=== PATIENT | female | born 1960 | race Caucasian/White ===

== ENCOUNTER 2024-06-06 00:07 | Inpatient (IN) | payer BC, MEDICARE ==
[2024-06-06] VITALS (13 sets, daily range): BP systolic 104–114; BP diastolic 40–62; PULSE 75–104; RESP 14–27; TEMP 97.7–98.3; O2SAT 92–99
[~2024-06-06] VITALS: Ht 157.5 cm; Wt 92.4 kg
[2024-06-06] MEDS: ALBUTEROL SULF 2.5 MG/0.5ML(0.5%) NEB SOLN NEB ONE (00:59)
[2024-06-06 01:17] LABS: Chloride 108 mmol/L (98-107); Potassium 3.4 mmol/L (3.5-5.1); Sodium 138 mmol/L (136-145)
[2024-06-06 01:18] LABS: Anion Gap 12 (5-15); Calcium 9.7 mg/dL (8.7-10.4); Carbon Dioxide 18 mmol/L (20-30)
[2024-06-06] MEDS: DexAMETHasone SOD PHOS 10MG/1ML VIAL INJ IV ONE (01:20)
[2024-06-06] MEDS: AZITHROMYCIN 250 MG TAB PO ONE ×2 (01:20→17:01)
[2024-06-06 01:23] LABS: BUN/Creatinine Ratio 12.5 (10.0-20.0); Basophils # (auto) 0 10 ^3/uL (0-0.2); Basophils % (auto) 0.7 % (0.0-2.0); Blood Urea Nitrogen 11 mg/dL (9-23); Eosinophils # (auto) 0.1 10 ^3/uL (0-0.8); Eosinophils % (auto) 1.7 % (0.0-7.0); Glucose 140 mg/dL (74-106); Hematocrit 39.9 % (36.0-46.0); Hemoglobin 13.8 g/dL (12.2-16.2); Lymphocytes # (auto) 0.6 10 ^3/uL (0.4-5.4); Lymphocytes % (auto) 9.5 % (10.0-50.0); Mean Corpuscular Hemoglobin 31.3 pg (28.0-32.0); Mean Corpuscular Hgb Conc. 34.6 g/dL (32.0-36.0); Mean Corpuscular Volume 90.7 fL (80.0-100.0); Monocytes # (auto) 0.7 10 ^3/uL (0-1.3); Monocytes % (auto) 11.8 % (0.0-12.0); Neutrophils # (auto) 4.8 10 ^3/uL (1.6-8.6); Neutrophils % (auto) 76.3 % (37.0-80.0); Nucleated Red Blood Cells % 0.1 %; Red Cell Distribution Width 14.5 % (11.8-14.3); White Blood Cell 6.3 10^3/uL (4.4-10.8)
[2024-06-06 04:24] LABS: Urine Bacteria None Seen /hpf (None Seen)
[2024-06-06 04:30] LABS: Urine Blood Negative /uL (Negative); Urine Clarity Clear (Clear); Urine Color Colorless (Yellow); Urine Protein, UAD Negative (Negative); Urine Specific Gravity 1.007 (1.001-1.035); Urine Urobilinogen Normal (Negative); Urine WBC <1 /hpf (0 - 5)
[2024-06-06] MEDS ORDERED: ACETAMINOPHEN 325 MG TAB PO PRN (06:45)
[2024-06-06] MEDS ORDERED: NITROGLYCERIN 0.4 MG SL TAB SL PRN (06:45)
[2024-06-06] MEDS ORDERED: ONDANSETRON HCL 4 MG/2 ML VIAL IV PRN (06:45)
[2024-06-06] MEDS ORDERED: MORPHINE SULFATE INJ 2 MG/ml SYRG IV PRN (06:45)
[2024-06-06] MEDS ORDERED: ALBUTEROL SULF 2.5 MG/0.5ML(0.5%) NEB SOLN NEB PRN (06:45)
[2024-06-06] MEDS: IPRATROPIUM BROM 0.5 MG/2.5ML INH SOL NEB PRN (08:33)
[2024-06-06] MEDS: ALBUTEROL SULF 2.5 MG/0.5ML(0.5%) NEB SOLN NEB PRN (08:33)
[2024-06-06 10:34] LABS: COVID19 ANTIGEN SOFIA FIA NEGATIVE (NEGATIVE)
[2024-06-06] MEDS: methylPREDNISolone SOD SUCC 40 MG/ML VL IV SCH ×2 (10:46→21:42)
[2024-06-06] MEDS: LOSARTAN POTASSIUM 25 MG TAB PO SCH (10:47)
[2024-06-06] MEDS: FLUoxetine HCL 20 MG CAP PO SCH (10:48)
[2024-06-06] MEDS: ENOXAPARIN SOD 40 MG/0.4 ML SYRINGE SC SCH (10:50)
[2024-06-06] MEDS ORDERED: traMADol HCL 50 MG TAB PO PRN (15:15)
[2024-06-06] MEDS ORDERED: ALPRAZolam 0.5 MG TAB PO PRN (15:15)
[2024-06-06] MEDS: cefTRIAXone 1GM/50ML D5W 50 ML IV ONE (15:15)
[2024-06-06] MEDS ORDERED: TEMAZEPAM 15 MG CAP PO PRN (15:15)
[2024-06-06] MEDS: POTASSIUM CHL 20 Meq TABLET PO ONE (17:02)
[2024-06-06] MEDS: ALBUTEROL SULF 2.5 MG/0.5ML(0.5%) NEB SOLN NEB SCH (19:07)
[2024-06-06] MEDS: IPRATROPIUM BROM 0.5 MG/2.5ML INH SOL NEB SCH (19:08)
[2024-06-06] MEDS ORDERED: ALPR0.25 PO (19:54)
[2024-06-06] MEDS ORDERED: LOSA-533 PO (19:54)
[2024-06-06] MEDS ORDERED: HYDR-4491 OR (19:55)
[2024-06-06] MEDS ORDERED: ALBUAER3 IN (19:56)
[2024-06-07] VITALS (9 sets, daily range): BP systolic 109–121; BP diastolic 47–58; PULSE 60–102; RESP 16–20; TEMP 36.6; O2SAT 93–97
[2024-06-07 06:46] LABS: Alanine Aminotransferase 37 U/L (7-40); Albumin 4.2 g/dL (3.2-4.8); Alkaline Phosphatase 99 U/L (46-116); Anion Gap 8 (5-15); Aspartate Aminotransferase 15 U/L (13-40); BUN/Creatinine Ratio 17.9 (10.0-20.0); Bilirubin, Total 0.4 mg/dL (0.2-1.0); Blood Urea Nitrogen 14 mg/dL (9-23); Calcium 9.7 mg/dL (8.7-10.4); Carbon Dioxide 24 mmol/L (20-30); Chloride 107 mmol/L (98-107); Glucose 144 mg/dL (74-106); Potassium 4.6 mmol/L (3.5-5.1); Sodium 139 mmol/L (136-145); Total Protein 7.3 g/dL (5.7-8.2)
[2024-06-07 06:47] LABS: Basophils # (auto) 0 10 ^3/uL (0-0.2); Eosinophils # (auto) 0 10 ^3/uL (0-0.8); Hematocrit 39.6 % (36.0-46.0); Hemoglobin 13.7 g/dL (12.2-16.2); Lymphocytes # (auto) 0.5 10 ^3/uL (0.4-5.4); Lymphocytes % (auto) 4.5 % (10.0-50.0); Mean Corpuscular Hemoglobin 31.4 pg (28.0-32.0); Mean Corpuscular Hgb Conc. 34.5 g/dL (32.0-36.0); Mean Corpuscular Volume 91.1 fL (80.0-100.0); Monocytes # (auto) 0.6 10 ^3/uL (0-1.3); Monocytes % (auto) 6.2 % (0.0-12.0); Neutrophils # (auto) 9.2 10 ^3/uL (1.6-8.6); Neutrophils % (auto) 89.3 % (37.0-80.0); Red Blood Cells 4.35 10^6/uL (4.0-5.20); Red Cell Distribution Width 14.9 % (11.8-14.3); White Blood Cell 10.3 10^3/uL (4.4-10.8)
[2024-06-07] MEDS: AZITHROMYCIN 250 MG TAB PO SCH (08:48)
[2024-06-07] MEDS: cefTRIAXone 1GM/50ML D5W 50 ML IV SCH (08:49)
[2024-06-07] MEDS ORDERED: DOXY-448 PO (12:04)
[2024-06-07] MEDS ORDERED: ALBUAER3 IN (12:04)
[2024-06-07] MEDS ORDERED: IPRIH INH (12:04)
[2024-06-07] MEDS ORDERED: METH4PAK PO (12:04)
[2024-06-08 09:28] LABS: Hepatitis B Surface Antigen Negative (Negative)
[2024-06-08 09:55] LABS: Hepatitis C Antibody Negative (Negative)
== END 2024-06-07 13:00 | disposition home or self-care (01) | DRG 190 ==
LOC: EDBD 00:07 → ER 00:07 → TELE 06:53 → TELE-WESTW 18:30
PROVIDERS: ADMIT Nurse Practitioner; ATTEND Internal Medicine
DX: J44.1 Chronic obstructive pulmonary disease with (acute) exacerbation (principal); J96.21 Acute and chronic respiratory failure with hypoxia; J45.901 Unspecified asthma with (acute) exacerbation; I10 Essential (primary) hypertension; F41.9 Anxiety disorder, unspecified; Z20.822 Contact with and (suspected) exposure to COVID-19; F32.A Depression, unspecified; E66.9 Obesity, unspecified; Z72.0 Tobacco use; Z85.89 Personal history of malignant neoplasm of other organs and systems; Z68.37 Body mass index [BMI] 37.0-37.9, adult
CPT/HCPCS: 36415; 71045; 80048; 80053; 81001; 83880; 85025; 85379; 86803; 87340; 87426; 93005; 94640; 96365; 96372; 96375; G0378; J1100